=== PATIENT | female | born 1965 | race Caucasian/White ===

== ENCOUNTER 2016-07-17 12:10 | Emergency (ER) | payer OTHER ==
[~2016-07-17 12:10] MED LIST: ESTRADIOL0.5 MG PO; LEVOCETIRIZINE D5 MG PO; NITROGLYCERIN0.4 MG SL; PANTOPRAZOLE SO40 MG PO; TYLENOL325 M1 PO; VALIUM5 MG PO; ZESTRIL20 M1 PO; ZOLOFT100 MG PO
[2016-07-17 13:08] LABS: URINE BILIRUBIN NEGATIVE (NEGATIVE); URINE BLOOD NEGATIVE (NEGATIVE); URINE GLUCOSE (UA) NORMAL (NORMAL); URINE KETONE NEGATIVE (NEGATIVE); URINE LEUKOCYTE ESTERASE TRACE (NEGATIVE); URINE NITRATE NEGATIVE (NEGATIVE); URINE PROTEIN TRACE (NEGATIVE); UROBILINOGEN NORMAL mg/dL (<1.0)
[2016-07-17 13:19] LABS: URINE RBC 0-5 /[HPF] (0-2); URINE SQUAMOUS EPITHELIAL CELL 0-10 /[HPF] (NONE SEEN); URINE WBC 0-5 /[HPF] (0-5)
[2016-07-17 13:20] LABS: URINE BACTERIA TRACE (NONE SEEN); URINE YEAST FEW (NONE SEEN)
== END 2016-07-17 15:00 | disposition home or self-care (01) ==
LOC: ER 12:10
PROVIDERS: Internal Medicine
DX: J20.8 Acute bronchitis due to other specified organisms (principal); G89.29 Other chronic pain; M54.9 Dorsalgia, unspecified; Z79.891 Long term (current) use of opiate analgesic; Z79.899 Other long term (current) drug therapy; Z88.2 Allergy status to sulfonamides; Z88.1 Allergy status to other antibiotic agents; Z88.6 Allergy status to analgesic agent; Z88.5 Allergy status to narcotic agent; Z88.8 Allergy status to other drugs, medicaments and biological substances
CPT/HCPCS: 72100; 81001; 87400; 99283-25

== ENCOUNTER 2016-07-29 02:20 | Emergency (ER) | payer OTHER ==
[2016-07-29 04:24] LABS: HEMATOCRIT 40.9 % (34-45); MEAN CORPUSCULAR HEMOGLOBIN 28.4 pg (27.0-33.0); MEAN CORPUSCULAR HGB CONC 31.8 g/dL (32.0-36.0); MEAN CORPUSCULAR VOLUME 89.3 fL (79-95); MEAN PLATELET VOLUME 8.6 fl (7.5-11.5); RED BLOOD COUNT 4.58 x10_6/uL (3.9-5.2); WHITE BLOOD COUNT 8.1 x10_3/uL (4.0-10.0)
== END 2016-07-29 04:44 | disposition home or self-care (01) ==
LOC: ER 02:20
PROVIDERS: General Practice
DX: M51.36 Other intervertebral disc degeneration, lumbar region (principal); M51.34 Other intervertebral disc degeneration, thoracic region; J02.9 Acute pharyngitis, unspecified; G89.29 Other chronic pain; M54.9 Dorsalgia, unspecified; I10 Essential (primary) hypertension; F41.9 Anxiety disorder, unspecified; F17.210 Nicotine dependence, cigarettes, uncomplicated; Z79.899 Other long term (current) drug therapy; Z79.891 Long term (current) use of opiate analgesic; Z88.2 Allergy status to sulfonamides; Z88.5 Allergy status to narcotic agent; Z88.1 Allergy status to other antibiotic agents; Z88.8 Allergy status to other drugs, medicaments and biological substances
CPT/HCPCS: 36415; 72128; 72131; 87070; 87880; 96372; 99283-25